=== PATIENT | male | born 1985 | race Caucasian/White ===

== ENCOUNTER 2024-12-19 11:44 | Outpatient (OUT) | payer MEDICAID, SELFPAY ==
--- OUTSIDE RECORDS SUMMARY | 2024-12-19 11:49 | XMS_ITS | Clinical Summary ---
Author Organization [facility] Address [id number] [address] [place] [address] Care Team Providers Care Resource Management Specialist Name Role Phone Gia Ann MD Primary Care Provider [phone] Allergies No known active allergies Medications omeprazole (PriLOSEC) 20 mg capsule Take 1 capsule (20 mg total) by mouth in the morning. Active QUEtiapine (SEROquel) 50 mg tablet Take 1 tablet (50 mg total) by mouth nightly. Active lithium carbonate 150 mg capsule Take 100 mg by mouth in the morning. Active busPIRone (BUSPAR) 5 mg tablet Take 1 tablet (5 mg total) by mouth. 08/25/2024 Active hydrOXYzine (VISTARIL) 25 mg capsule Take 1 capsule (25 mg total) by mouth 3 (three) times a day as needed for anxiety. 08/25/2024 Active Encounters Date Type Department Care Team Description 10/17/2024 9:30 AM EDT - 10/17/2024 10:00 AM EDT Surgery [facility] Surgery [address] [place] [phone] Jose Luis Miguel DO 5TH METARARPAL HARDWARE REMOVAL [70830 (CPT )] 10/17/2024 7:55 AM EDT - 10/17/2024 9:46 AM EDT Hospital Encounter [address] [address] Jose Luis Miguel, DO Discharge Disposition: Home 10/17/2024 Travel 10/03/2024 8:01 AM EDT - 10/03/2024 9:49 AM EDT Emergency [facility] - Emergency [address] [facility] [address] Monica Ortiz MD Post-operative pain (Primary Dx) Discharge Disposition: Home 10/03/2024 Travel 09/21/2024 Travel from Last 3 Months Family History Medical History Relation Name Comments COPD Maternal Grandmother Relation Name Status Comments Maternal Grandmother Social History Tobacco Use Types Packs/Day Years Used Date Smoking Tobacco: Every Day Cigarettes 1 24 Smokeless Tobacco: Never Tobacco Cessation:Ready to Q uit: Not Asked; Counseling Given: Not Answered Alcohol Use Standard Drinks/Week Comments Not Currently 0 (1 standard drink = 0.6 oz pur e alcohol) Hunger Screening Answer Date Recorded Within the past 12 months we worried whether our food would run out before we got money to buy more. Never True 10/03/2024 Within the past 12 months th e food we bought just didn't last and we didn't have money to get more. Never True 10/03/2024 Sex and Gender Information Value Date Recorded Sex Assigned at Not on file Legal Sex Male 2:20 PM EST Gender Identity Not on file Sexual Orientation Not on file Last Filed Vital Signs Vital Sign Reading Time Taken Comments Blood Pressure 145/100 10/17/2024 9:36 AM EDT Pulse 78 10/17/2024 9:13 AM EDT Temperature 35.8 C (96.4 F) 10/17/2024 9:36 AM EDT Respiratory Rate 18 10/17/2024 9:36 AM EDT Oxygen Saturation 100% 10/17/2024 9:13 AM EDT Inhaled Oxygen Concentration - - Weight 93 kg (205 lb) 10/17/2024 8:08 AM EDT Height 172.7 cm (5' 8 ) 10/17/2024 8:08 AM EDT Body Mass Index 31.17 10/17/2024 8:08 AM EDT Plan of Treatment Health Maintenance Due Date Last Done Comments Tobacco Counseling 1983 Depression Screening 1995 Adult BMI Follow Up Plan 2001 DTaP,Tdap and Td Vaccines (1 - Tdap) 2002 Influenza Vaccine 01/01/2025 Adult BMI Screening 10/17/2025 10/17/2024 Tobacco Screening 10/17/2025 10/17/2024 Medical Devices Explanted Type Area Women'S Basketball Coach Device Identifier Shelf Expiration Date Model / Serial / Lot 6 Radhika Implanted:Qty: 2 on 08/23/2024 by Jose Luis Miguel, DO at [facility] Explanted:Qty: 2 on 10/17/2024 by Jose Luis Miguel DO at [facility] Implant Wire Right: Hand [employer] 05/03/2029 [id number] / NA / NA Procedures Procedure Name Priority Date/Time Associated Diagnosis Comments XR HAND RT 2 VWS Routine 10/17/2024 10:2 4 AM EDT VT REMOVAL SUPERFICIAL IMPLANT 10/17/2024 9:10 AM EDT Displaced fracture of neck of 5th metacarpal bone right hand subsequent encouter for fracture with routine healing Case Notes 0830 Special Needs C-ARMpins PM ED SPLINT APPLICATION Routine 10/03/2024 9:12 AM EDT XR HAND RT MIN 3 VWS STAT 10/03/2024 8:41 AM EDT LITHIUM LEVEL Routine 09/21/2024 9:41 AM EDT Other exterminator (current) drug therapy from Last 3 Months Results * X-ray hand right 2 views (10/17/2024 10:24 AM EDT) Anatomical Region Laterality Modality Upper Extremities, MSK, Hand Right Rad io Fluoroscopy 10/17/2024 11:5 7 PM EDT Narrative 10/17/2024 11:57 PM EDT XR HAND RT 2 VWS INDICATION: Right hand pain pinning removal. FINDINGS: Intraoperative fluoroscopy provided during orthopedic procedure right hand. No radiologist present during the examination. Reference Air Kerma: 0.12 mGy IMPRESSION: Intraoperative fluoroscopy provided as above. See operative report for additional details. Finalized by Gabriel Iniguez MD on 10/17/2024 11:57 PM Procedure Note Gabriel Iniguez MD - 10/17/2024 XR HAND RT 2 VWS INDICATION: Right hand pain pinning removal. FINDINGS: Intraoperative fluoroscopy provided during orthopedic procedure righthand. No radiologist present during the examination. Reference Air Kerma: 0.12 mGy IMPRESSION: Intraoperative fluoroscopy provided as above. See operative report foradditional details. Finalized by Gabriel Iniguez MD on 10/17/2024 11:57 PM Jose Luis Miguel DO IMG DIAGNOSTIC IMAGING ORDE LAM Final Result * Splint Application (10/03/2024 9:12 AM EDT) Narrative Monica Ortiz MD - 10/03/2024 9:12 AM EDT Monica Ortiz MD 10/03/2024 9:41 AM Splint Application Date/Time: 10/03/2024 9:12 AM Performed by: Monica Ortiz MD Authorized by: Monica Ortiz MD Consent: Consent obtained: Verbal Consent given by: Patient Risks, benefits, and alternatives were discussed: yes Risks discussed: Discoloration, numbness, pain and swelling High View protocol: Procedure explained and questions answered to patient or proxy's satisfaction: yes Patient identity confirmed: Verbally with patient Pre-procedure details: Distal neurologic exam: Normal Distal perfusion: distal pulses strong and brisk capillary refill Procedure details: Location: Hand Hand location: R hand Splint type: Ulnar gutter Supplies: Fiberglass, cotton padding and elastic bandage Attestation: Splint applied and adjusted personally by me Post-procedure details: Distal neurologic exam: Normal Distal perfusion: distal pulses strong and brisk capillary refill Procedure completion: Tolerated well, no immediate complications Monica Ortiz MD PROCEDURE/MINOR SURGICAL ORDE RABJOSE DANIEL Final Result * X-ray hand right minimum 3 views (10/03/2024 8:41 AM EDT) Anatomical Region Laterality Modality Upper Extremities, MSK, Hand Com puted Radiography 10/03/2024 8:44 AM EDT Narrative 10/03/2024 8:45 AM EDT XR HAND RT MIN 3 VWS HISTORY: R hand pain from pins. COMPARISON: 08/16/2024 IMPRESSION: Interpretation fifth metacarpal neck fracture, improved alignment from preoperative imaging. Juxta-articular osteopenia about the hand, possibly related to disuse. Finalized by Luis Lora MD on 10/03/2024 8:45 AM Procedure Note Luis Lora MD - 10/03/2024 XR HAND RT MIN 3 VWS HISTORY: R hand pain from pins. COMPARISON: 08/16/2024 IMPRESSION: Interpretation fifth metacarpal neck fracture, improved alignment frompreoperative imaging. Juxta-articular osteopenia about the hand, possibly related to disuse. Finalized by Luis Lora MD on 10/03/2024 8:45 AM Monica Ortiz MD IMG DIAGNOSTIC IMAGING ORDERA BLES Final Result * (ABNORMAL) Koppel level (09/21/2024 9:41 AM EDT) LITHIUM 0.3(L) 0.5 - 1.5 mmol/L 09/21/2024 3:10 PM EDT [facility] Blood Venous blood / Unknown Venipuncture / Unknown 09/21/2024 9:41 AM EDT 09/21/2024 9:42 AM EDT Mandi Simmons OYSTER CULTURIST-MASK DESIGNER LAB BLOOD ORDERABLES Fin al Result [facility] [address] [place] [address], [place] [phone] from Last 3 Months Insurance [facility] [employer] [place] [employer] WORK[employer] COMPENSATION Care Teams Resource Management Specialist Relationship Specialty Start Date End Date Gia Ann MD PCP - General Infectious Disease 05/01/24
--- OUTSIDE RECORDS SUMMARY | 2024-12-19 11:49 | XMS_ITS | Patient Health Record ---
Author Organization [facility] vices Address [address] [place], [place] [id number] Care Team Providers Care Fiberglass Tube Molder Name Role Phone Gia Ann Primary Care Provider Allergies No Known Allergies Results Component Value Reference Range Notes LIPID PANEL WITH REFLEX TO D IRECT LDL Reviewed date:05/01/2024 07:53:07 AM Interpretation: Performing Lab: Notes/Report: CHOLESTEROL 142 100-199 mg/dL TRIGLYCERIDES 46 20-149 mg/dL VLDL-CHOL, CALCULATED 9 <30 mg/dL HDL-CHOL 71 >=40 mg/dL LDL-CHOL, CALCULATED 62 <130 mg/dL ADULT LDL CHOLESTEROL CLASSIFICATION <100mg/dL Optimal 100-129 Near/Abo ve Optimal 130-159mg/dL Borderli ne High >160mg/dL High Risk Desirable range <100 mg/dL for patients with CHD or diabetes and <70 mg/dL for diabetic patients with known heart disease. Direct LDL is recommended for patients with triglycerides >400. LDL/HDL 0.9 <5.0 LDL/HDL RATIO MALE FEMALE below average risk <2.3 <2.3 average risk <5.0 <4.1 moderate risk <7.1 <5.6 high risk >7.1 >5.6 CHOL/HDL 2.0 2.0-4.5 COMPREHENSIVE METABOLIC PANE L WITH GFR Reviewed date:05/01/2024 07:53:02 AM Interpretation: Performing Lab: Notes/Report: GLUCOSE 95 70-100 mg/dL BUN 18 6-20 mg/dL CALCIUM 9.7 8.6-10.5 mg/dL CREATININE, BLOOD 0.64 0.67-1.30 mg/dL eGFR (2020 CKD-EPI) 123 >59 mL/min/1.73m2 SODIUM 141 135-148 mmol/L POTASSIUM 4.9 3.5-5.4 mmol/L CHLORIDE 105 96-107 mmol/L CO2 25 18-32 mmol/L ANION GAP 11 7-16 mmol/L T. BILIRUBIN 0.3 <1.3 mg/dL ALK PHOS 117 39-118 U/L AST-SGOT 17 9-50 U/L ALT-SGPT 14 5-41 U/L T. PROTEIN 6.8 6.0-8.3 g/dL ALBUMIN 4.3 3.5-5.2 g/dL ACUTE HEPATITIS PANEL Reviewed date:05/01/2024 07:52:42 AM Interpretation: Performing Lab: Notes/Report: HEPATITIS A AB, IGM NEGATIVE NEGATIVE HEPATITIS B CORE AB, IGM NEGATIVE NEGATIVE HEPATITIS B SURFACE AG NEGATIVE NEGATIVE HEPATITIS C AB NEGATIVE NEGATIVE CBC W/AUTO DIFF Reviewed date:05/01/2024 07:52:09 AM Interpretation: Performing Lab: Notes/Report: WBC 5.7 3.6-11.0 THDS/CMM RBC 4.43 4.40-6.10 MILL/CMM HGB 13.5 13.0-18.0 G/DL HCT 40.6 39-52 % MCV 92 75-100 fL MCH 30.5 26.0-32.0 pg MCHC 33.3 32.0-35.0 g/dl RDW 13.2 11.2-14.8 % PLATELET 213 140-440 THOUS/CMM NEUTROPHILS 64.0 45-75 % LYMPHOCYTES 19.8 20-45 % MONOCYTES 11.4 0-13 % EOSINOPHILS 4.2 0-5 % BASOPHILS 0.4 0-2 % IMMATURE GRAN 0.2 0-2 % ABS NEUTROPHILS 3.66 1.9-8.0 K/uL ABS LYMPHOCYTES 1.13 0.9-5.2 K/uL ABS MONOCYTES 0.65 0.1-1.0 K/uL ABS EOSINOPHILS 0.24 0.0-0.80 K/uL ABS BASOPHILS 0.02 0.0-0.2 K/uL ABS IMMATURE GRAN 0.01 0.00-0.06 K/uL PSA, TOTAL, 3RD GENERATION Reviewed date:05/01/2024 07:52:57 AM Interpretation: Performing Lab: Notes/Report: PSA, TOTAL 1.570 0-4.00 ng/mL Method: Sveta Francois ECLIA PSA levels should not be interpreted as absolute evidence of disease, however it is widely accepted as an adjunctive test in the management of prostate cancer patients. Values obtained with different assay methods or kits can not be used interchangeably. A detectable PSA following radical prostatectomy is associated with eventual clinical disease recurrence in some, but not all patients. It may also be due to the presence of benign glands. The AUA defines biochemical recurrence as an initial PSA value >=0.2 ng/ml followed by a subsequent confirmatory PSA value >=0.2 ng/ml. HEMOGLOBIN A1C Reviewed date:05/01/2024 07:52:53 AM Interpretation: Performing Lab: Notes/Report: HEMOGLOBIN A1C 5.0 <5.7 % Prediabetes: 5.7% to 6.4% Diabetes: >6.4% Glycemic control for adults with diabetes: <7.0% Use with caution in patients with abnormal hemoglobin variants as the half-life of red blood cells and in vivo glycation rates are affected. AVERAGE WHOLE BLOOD GLUCOSE 97 <126 mg/dl UNLESS OTHERWISE INDICATED, ALL TESTING PERFORMED AT: [facility] [address] [place] [address] MIX TECHNICIAN: TSALIN SAVAGE M.D. CLIA NUMBER [id number] CAP ACCREDITATION AUID [id number] VITAMIN B12 Reviewed date:05/01/2024 07:52:18 AM Interpretation: Performing Lab: Notes/Report: VITAMIN B12 546 629-4260 pg/mL It has been reported that between 5 and 10% of patients with values between 200 and 400 pg/ml may experience neuropsychiatric and hematologic abnormalities due to occult B12 deficiency. Less than 1% of patients with values above 400 pg/ml will have symptoms. VITAMIN B1 PLASMA Reviewed date:05/01/2024 07:52:15 AM Interpretation: Performing Lab: Notes/Report: VITAMIN B1, PLASMA <2 4-15 nmol/L INTERPRETIVE DATA: Vitamin B1, Plasma Thiamine (vitamin B1) is reported. However, thiamine diphosphate (TDP), the biologically active form of thiamine, is not found in measurable concentrations in plasma, and is best determined in whole blood specimens. Plasma thiamine concentration reflects recent intake rather than body stores. This test was developed and its performance characteristics determined by [facility]. It has not been cleared or approved by the [place] Food and Drug Administration. This test was performed in a CLIA certified laboratory and is intended for clinical purposes. Performed By: [facility] [address] [place] [id number] Stitcher Operator: Cooper Dunlap MD, PhD CLIA Number: [id number] IRON BINDING CAPACITY (IBC) IRON AND % SATURATION Reviewed date:05/01/2024 07:52:28 AM Interpretation: Performing Lab: Notes/Report: UNSATURATED IBC 475 112-347 ug/dL IRON BINDING 509 250-450 ug/dL IRON SATURATION 7 13-45 % IRON 34 59-158 ug/dL VITAMIN D 25 HYDROXY Reviewed date:05/01/2024 07:52:37 AM Interpretation: Performing Lab: Notes/Report: VITAMIN D, 25 HYDROXY 11.5 30.0-100.0 ng/mL 25-OH VITAMIN D INTERPRETATION Deficiency.... <20.0 ng/ml Insufficiency..20.0-29.0 ng/ml Sufficiency....30.0-100.0 ng/ml Possible Toxicity...>150 ng/ml HIV-1 2 COMBO AG/AB Reviewed date:05/01/2024 07:52:46 AM Interpretation: Performing Lab: Notes/Report: Negative for HIV-1 antigen and HIV-1/HIV-2 antibodies. No laboratory evidence of HIV infection. Does not exclude the possibility of exposure to or infection with HIV-1 and/or HIV-2 that are below the limit of detection of this assay. HIV-1,2 COMBO AG/AB Nonreactive Nonreactive HIV-1 p24 Ag Nonreactive Nonreactive HIV-1/HIV-2 Abs Nonreactive Nonreactive Reason For Referral Reason needs colonoscopy an d EGD with h/of polyps and multiple ulcers in stomach Diagnosis 1 Screening for colon cancer (Z12.11) Referral Organization Main Referring Provider First Name Gia Referring Provider Last Name Seth Referring Provider Speciality Internal M edicine Referred Provider Yon James Referred Provider Specialty General Surg darshan General Notes Stephanie Singleton 05/08 08:26:11 AM >{{TOFIRSTNAME}} This is [facility] following up on an outstanding referral that was ordered by your provider. Please call our office at , so we can _update our records., Stephanie Singleton 05/15/2024 07:24:51 AM >no response from patient , closing per protocol. Referral Priority Routine Medications Medication SIG (Take, Route, Fr equency, Duration) Notes Start Date End Date Status Fluconazole 200 MG 1 tablet Orally weee kly; Duration: 10 days 04/25/2024 Active Nystatin 385420 UNIT/GM 1 application Ex ternally Twice a day; Duration: 10 days 04/25/2024 Active Omeprazole 20 MG 1 capsule 1/2 to 1 h our before morning meal Orally Once a day Active Nystatin 198138 UNIT/GM APPLY OINTMENT T OPICALLY TO AFFECTED AREA TWICE DAILY UNTIL RESOLVED. External; Duration: 15 Days Active Social History Tobacco Use: Social History Observation Description Date Details (start date - stop date) Current Smoker NA - NA Sex Assigned At : Social History Observation Description Sex Assigned At Male CAGE-AID Questionnaire (2018 Edition) Question Answer Notes Have you ever felt that you ought to cut down on your drinking or drug use? No Have people annoyed you by criticizing your drin seb or drug use? No Have you ever felt bad or guilty about your drin seb or drug use? No Have you ever had a drink or used drugs first thing in the morning to steady your nerves or to get rid of a hangover? No CAGE-AID Score 0 Interpretation Negative PRAPARE Question Answer Notes Date Completed/Updated: 04/25/2024 What is your current housing situation? I have h ousing Are you worried about losing your housing? No What is the highest level of school that you have finished? 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 Check all that apply I do not have problems meeting my needs Has lack of transportation k ept you from medical appointments, meetings, work or from getting things needed for daily living? No How often do you see or talk to people that you care about and feel close to? (For example: talking to friends on the phone, visiting friends or family, going to hindu or club meetings) More than 5 times a week How stressed are you? Stress is when someone feels tense, nervous, anxious, or can't sleep at night because their mind is troubled Very much In the past year have you sp ent more than 2 nights in a row in a fci, nursing home, long term center, or juvenile correctional facility? No Are you a refugee? No What country are you from? [place] Do you feel physically and e motionally safe where you currently live? Yes In the past year, have you b een afraid of your partner or ex-partner? No PRAPARE Score: 2 Tobacco Control (Standard) Question Answer Notes Tobacco use: Current every day smoker Additional Findings: Tobacco user Very heavy cig arette smoker (40+ cigs/day) Problems Problem Type SNOMED Code ICD Code Onset Dates Problem Status W/U Status Risk Notes Problem Obesity (508412902) Obesity (BMI 30-39.9) (E66.9) Active confirmed Vital Signs Heart Rate 74 /min 04/25/2024 Stephanie Singleton 04/25/2024 09:28:00 AM EST > Temperature 98.0 degrees Fahrenheit 04/25/2024 Stephanie Duarte 04/25/2024 09:28:00 AM EST > Respiratory Rate 18 /min 04/25/2024 Shawn Singleton 04/25/2024 09:28:00 AM EST > Height-cm 172.72 cm 04/25/2024 Stephanie Singleton 04/25/2024 09:28:00 AM EST > Oximetry 97 % 04/25/2024 Stephanie Singleton 04/25/2024 09:28:00 AM EST > Blood pressure diastolic 77 mm Hg 04/25/2024 Stephanie Payne 04/25/2024 09:28:00 AM EST > Weight-kg 95.93 kg 04/25/2024 Stephanie Singleton 04/25/2024 09:28:00 AM EST > Height 68 in 04/25/2024 Stephanie Singleton 04/25/2024 09:28:00 AM EST > Blood pressure systolic 136 mm Hg 04/25/2024 Stephanie Duarte 04/25/2024 09:28:00 AM EST > Weight 211.5 lbs 04/25/2024 ManiGold velázquezey 04/25/2024 09:28:00 AM EST > BMI 32.15 kg/m2 04/25/2024 Mani Stephanie 04/25/2024 09:28:00 AM EST > Encounters Encounter Location Date Provider Diagnosis [facility] [address] [place] [address] 04/25/2024 Gia Ann Encounter for wellne ss examination Z00.00 ; Screening for diabetes mellitus Z13.1 ; Encounter for screening for HIV Z11.4 ; Screening for colon cancer Z12.11 ; Screening for prostate cancer Z12.5 ; Encounter for screening for cardiovascular disorders Z13.6 ; Dietary counseling Z71.3 ; Exercise counseling Z71.82 ; H/O alcoholic gastritis Z87.19 ; History of gastric bypass Z98.84 ; Bone pain M89.8X9 ; Skin candidiasis B37.2 and Obesity (BMI 30-39.9) E66.9 Assessments Encounter Date Diagnosis (ICD Code) Assessment Notes Treatment Notes Treatment Clinical Notes Section Notes 04/25/2024 Screening for diabetes mellitus (ICD-10 - Z13.1) 04/25/2024 Encounter for wellness examination (ICD-10 - Z00.00) Pt is here for wellness today. Overall health is okay. I advised to get baseline tests and pt is agreeable for that. I advised regular exercise and eating a balanced diet with focus on eating less fried and fatty foods and eating more fresh fruits and vegetable in an attempt to achieve and maintain a healthy BMI and PVU We discussed the importance of vaccination including covid shots and yearly flu shots and all questions were answered in detail today. Pt will see us back in 2 week to discuss results. 04/25/2024 Encounter for screening for HIV (ICD-10 - Z11.4) 04/25/2024 Screening for colon cancer (ICD-10 - Z12.11) 04/25/2024 Screening for prostate cancer (ICD-10 - Z12.5) 04/25/2024 Encounter for screening for cardiovascular disorders (ICD-10 - Z13.6) 04/25/2024 Dietary counseling (ICD-10 - Z71.3) 04/25/2024 Exercise counseling (ICD-10 - Z71.82) 04/25/2024 H/O alcoholic gastritis (ICD-10 - Z87.19) 04/25/2024 History of gastric bypass (ICD-10 - Z98.84) 04/25/2024 Bone pain (ICD-10 - M89.8X9) 04/25/2024 Skin candidiasis (ICD-10 - B37.2) 04/25/2024 Obesity (BMI 30-39.9) (ICD-10 - E66.9) Plan Of Treatment No Information Insurance Providers Payer Name Payer Address Payer Phone Subscriber Number Group Number Insured Name Patient Relationship to Insured Coverage Start Date Coverage End Date [facility] [address] [place], [place] [phone] [id number] Self - patient is the insured 4 Medical (General) History Medical History History ICD Code h/o HTN - resolved after gastric bypass Surgical History Surgery Date(Month/Year) tonsils gastric bypass Hospitalization History Reason Date(Month/Year) bleeding ulcers 2012,2014,2015,2011
[2024-12-19 13:50] LABS: Blood Urea Nitrogen 13.0 mg/dL (7.0-18.0); Estimated GFR (African America >60 (>=60 mL/min/1.73m^2); Estimated GFR (Non-African Ame >60 (>=60 mL/min/1.73m^2)
[2024-12-20 04:07] LABS: Lithium (Eskalith(R)), Serum 0.8 mmol/L (0.5-1.2)
== END 2024-12-19 11:45 | disposition home or self-care (01) ==
LOC: LAB 11:48
PROVIDERS: Visit Provider Registered Nurse Psychiatric/Mental Health
DX: Z79.899 Other long term (current) drug therapy (principal)
CPT/HCPCS: 36415; 80178; 82565; 84520

== ENCOUNTER 2025-02-26 21:43 | Emergency (ER) | payer MEDICAID, SELFPAY ==
--- OUTSIDE RECORDS SUMMARY | 2024-05-08 09:30 | XMS_ITS ---
Author Organization [facility] vices Address [address] [place] [phone] Care Team Providers Care Plate And Weld Inspector Name Role Phone Gia Ann Primary Care Provider REASON FOR VISIT 2 wk fu discuss labs Social History Sex Assigned At : Social History Observation Description Sex Assigned At Male Encounters Encounter Location Date Provider Diagnosis [address] [address] 05/08/2024 Gia Ann Plan Of Treatment No Information Progress Notes * DISHAIvandarshanDOB:1985 (39 yo M)Acc No.[id number]:05/08/2024 Medical Note Patient: Te CONCEPCION :?Gia Ann MDDOB:1985???Age:38 Y???Sex: MaleDate:05/08/2024Phone:[phone]:[address] [place] [id number] Subjective: * Chief Complaints: * 1 . 2 wk fu discuss labs. * Medical History: Objective: * Vitals: Assessment: Plan: * Treatment: * Billing Information: * Visit Code: * Procedure Codes: * Electronic signature of Gia Ann MD on 02/26/2025 at 09:51 PM EDTSign off status: Pending * Provider: Yovani Ann MD Date: 0 05/08/2024 Generated for Printing/Faxing/eTransmitting on:?02/26/2025 09:51 PM EDT
[2025-02-26 21:48] VITALS: BP 127/88; PULSE 90; TEMP 36.3; O2SAT 99; BMI 32.5
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
--- NOTE | 2025-02-26 21:49 | ECG_ITS ---
The [facility] Test Date: 2025-02-26 Pat Name: YON GAUTHIER Department: Room: - Gender: Male Tailing Hand: : 1985 Requested By: [id number] Order Number: [id number] Reading MD: SAQIB MYERS M.D. Measurements Intervals [place] Rate: 72 P: 71 UT: 170 QRS: 43 QRSD: 90 T: 46 QT: 396 QTc: 421 Interpretive Statements 1100 Sinus rhythm 9110 normal ECG No previous ECG available for comparison Electronically Signed On 02-27-2025 8:43:43 EDT by SAQIB MYERS M.D.
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
[2025-02-26 21:52] VITALS: BP 127/88
--- OUTSIDE RECORDS SUMMARY | 2025-02-26 21:52 | XMS_ITS | Clinical Summary ---
Author Organization [employer] tem Address [id number] [address] [place] [address] Care Team Providers Care Postdoctoral Fellow Name Role Phone Gia Ann MD Primary Care Provider [phone] Allergies No known active allergies Medications MedicationSigDispense QuantityRefillsLast FilledStart DateEnd DateStatus omeprazole (PriLOSEC) 20 mg capsule Take 1 capsule (20 mg total) by mouth in the morning.Active QUEtiapine (SEROquel) 50 mg tablet Take 1 tablet (50 mg total) by mouth nightly.Active lithium carbonate 150 mg capsule Take 100 mg by mouth in the morning.Active busPIRone (BUSPAR) 5 mg tablet Take 1 tablet (5 mg total) by mouth.5Active hydrOXYzine (VISTARIL) 25 mg capsule Take 1 capsule (25 mg total) by mouth 3 (three) times a day as needed for anxiety.5Active Family History Medical HistoryRelationNameCommentsCOPDMaternal GrandmotherRelationNameStatus CommentsMaternal Grandmother Social History Tobacco UseTypesPacks/DayYears UsedDateSmoking Tobacco: Every ImvHvkhopnbjn309 Smokeless Tobacco: Never Tobacco Cessation:Ready to Q uit: Not Asked; Counseling Given: Not Answered Alcohol UseStandard Drinks/WeekCommentsNot Currently0 (1 standard drink = 0.6 oz pure alcohol)Hunger ScreeningAnswerDate RecordedWithin the past 12 months we worried whether our food would run out before we got money to buy more.Never True10/03/2024Within the past 12 months the food we bought just didn't last and we didn't have money to get more.Never True10/03/2024Sex and Gender Information ValueDate RecordedSex Assigned at BirthNot on fileLegal TgdKzup37/11/2024 2:20 PM ESTGender IdentityNot on fileSexual OrientationNot on file Last Filed Vital Signs Vital SignReadingTime TakenCommentsBlood Nyvvkeid731/7399010/17/2024 9:36 AM EDT Fronf589510/17/2024 9:13 AM TSJUmmkjltsejh34.8 ??C (96.4 ??F)10/17/2024 9:36 AM EDTRespiratory Inao194410/17/2024 9:36 AM EDTOxygen Uhenztkxmq184%10/17/2024 9:13 AM EDTInhaled Oxygen Concentration--Khlwtr64 kg (205 lb)10/17/2024 8:08 AM EDT Bvywyl201.7 cm (5' 8 )10/17/2024 8:08 AM EDTBody Mass Index31.17010/17/2024 8:08 AM EDT Plan of Treatment Health MaintenanceDue DateLast DoneCommentsTobacco Gokeuzoibk03/12/1984 Depression Atcuyjnup34/12/1996Adult BMI Follow Up Plan2001DTaP,Tdap and Td Vaccines (1 - Tdap)2002Influenza Nzuzrri1201/01/2025dult BMI Screening Tobacco Zfsrrlwjf30 Medical Devices ExplantedTypeAreaManufacturerDevice IdentifierShelf Expiration DateModel / Serial / Lot6 [employer] Implanted:Qty: 2 on 08/23/2024 by Jose Luis Miguel DO at [facility] Explanted:Qty: 2 on 10/17/2024 by Jose Luis Miguel DO at [facility] WireRight: HandKey Bhkkgobi22/01/[id number] / NA / NA Insurance Care Teams Team MemberRelationshipSpecialtyStart DateEnd Gia Ann MD PCP - GeneralInfectious Zxliqxv70/30/24
--- OUTSIDE RECORDS SUMMARY | 2025-02-26 21:52 | XMS_ITS | Patient Health Record ---
Author Organization [facility]ices Address [address] [place], [place] [id number] Care Team Providers Care Physician'S Aide Name Role Phone Gia Ann Primary Care Provider Allergies No Known Allergies Results Component Value Reference Range Notes HIV-1 2 COMBO AG/AB Reviewed date:05/01/2024 07:52:46 AM Interpretation: Performing Lab: Notes/Report: Negative for HIV-1 antigen and HIV-1/HIV-2 antibodies. No laboratory evidence of HIV infection. Does not exclude the possibility of exposure to or infection with HIV-1 and/or HIV-2 that are below the limit of detection of this assay. HIV-1,2 COMBO AG/AB Nonreactive Nonreactive HIV-1 p24 AgNonreactiveNonreactiveHIV-1/HIV-2 AbsNonreactiveNonreactiveVITAMIN D 25 HYDROXY Reviewed date:05/01/2024 07:52:37 AM Interpretation: Performing Lab: Notes/Report: VITAMIN D, 25 HYDROXY 11.530.0-100.0 ng/mL 25-OH VITAMIN D INTERPRETATION Deficiency.... <20.0 ng/ml Insufficiency..20.0-29.0 ng/ml Sufficiency....30.0-100.0 ng/ml Possible Toxicity...>150 ng/ml IRON BINDING CAPACITY (IBC) IRON AND % SATURATION Reviewed date:05/01/2024 07:52:28 AM Interpretation: Performing Lab: Notes/Report:UNSATURATED DVJ295833-179 ug/dLIRON MZLUNSU553764-934 ug/dLIRON VDFMKSWALV154-68 %WXYB9810-606 ug/dLVITAMIN B1 PLASMA Reviewed date:05/01/2024 07:52:15 AM Interpretation: Performing Lab: Notes/Report: VITAMIN B1, PLASMA <24-15 nmol/L INTERPRETIVE DATA: Vitamin B1, Plasma Thiamine (vitamin B1) is reported. However, thiamine diphosphate (TDP), the biologically active form of thiamine, is not found in measurable concentrations in plasma, and is best determined in whole blood specimens. Plasma thiamine concentration reflects recent intake rather than body stores. This test was developed and its performance characteristics determined by [facility]. It has not been cleared or approved by the [place] Food and Drug Administration. This test was performed in a CLIA certified laboratory and is intended for clinical purposes. Performed By: [facility] [address] [place] [id number] Salon Manager: Cooper Dunlap MD, PhD CLIA Number: [id number] VITAMIN B12 Reviewed date:05/01/2024 07:52:18 AM Interpretation: Performing Lab: Notes/Report:VITAMIN [id number] pg/mL It has been reported that between 5 and 10% of patients with values between 200 and 400 pg/ml may experience neuropsychiatric and hematologic abnormalities due to occult B12 deficiency. Less than 1% of patients with values above 400 pg/ml will have symptoms. HEMOGLOBIN A1C Reviewed date:05/01/2024 07:52:53 AM Interpretation: Performing Lab: Notes/Report:HEMOGLOBIN A1C5.0<5.7 % Prediabetes: 5.7% to 6.4% Diabetes: >6.4% Glycemic control for adults with diabetes: <7.0% Use with caution in patients with abnormal hemoglobin variants as the half-life of red blood cells and in vivo glycation rates are affected. AVERAGE WHOLE BLOOD GLXPLPW27<126 mg/dl UNLESS OTHERWISE INDICATED, ALL TESTING PERFORMED AT: [facility] [address] [place] [id number] BADGER DISTILLER OPERATOR: STALIN SAVAGE M.D. CLIA NUMBER [id number] CAP ACCREDITATION AUID [id number] PSA, TOTAL, 3RD GENERATION Reviewed date:05/01/2024 07:52:57 AM Interpretation: Performing Lab: Notes/Report: PSA, TOTAL 1.5700-4.00 ng/mL Method: Sveta Francois ECLIA PSA levels [...] a subsequent confirmatory PSA value >=0.2 ng/ml. CBC W/AUTO DIFF Reviewed date:05/01/2024 07:52:09 AM Interpretation: Performing Lab: Notes/Report:WBC5.73.6-11.0 THDS/CMMRBC4.434.40-6.10 MILL/HCXYMF27.513.0-18.0 G/DLHCT40.639-52 %ASW6018-204 fLMCH30.526.0-32.0 asJFYW07.332.0-35.0 g/dlRDW13.2 11.2-14.8 %PKYZZMZL218856-382 THOUS/QCVXQTTHZCWQIC90.045-75 %HRRAKPJKMMF80.820- 45 %YTAIXFLZX35.40-13 %EOSINOPHILS4.20-5 %BASOPHILS0.40-2 %IMMATURE GRAN0.20-2 % ABS NEUTROPHILS3.661.9-8.0 K/uLABS LYMPHOCYTES1.130.9-5.2 K/uLABS MONOCYTES0.65 0.1-1.0 K/uLABS EOSINOPHILS0.240.0-0.80 K/uLABS BASOPHILS0.020.0-0.2 K/uLABS IMMATURE GRAN0.010.00-0.06 K/uLACUTE HEPATITIS PANEL Reviewed date:05/01/2024 07:52:42 AM Interpretation: Performing Lab: Notes/Report: HEPATITIS A AB, IGM NEGATIVENEGATIVE HEPATITIS B CORE AB, IGM NEGATIVENEGATIVEHEPATITIS B SURFACE AGNEGATIVENEGATIVEHEPATITIS C ABNEGATIVE NEGATIVECOMPREHENSIVE METABOLIC PANEL WITH GFR Reviewed date:05/01/2024 07:53:02 AM Interpretation: Performing Lab: Notes/Report:IVFELLZ8434-110 mg/tMEBQ727-42 mg/dLCALCIUM9.78.6-10.5 mg/dL CREATININE, BLOOD 0.640.67-1.30 mg/dLeGFR (2020 CKD-EPI)123>59 mL/min/1.73m2 TETFGA997674-059 mmol/LPOTASSIUM4.93.5-5.4 mmol/EPMRFHTLG99048-002 mmol/VMQ166 18-32 mmol/LANION SXX156-76 mmol/LT. BILIRUBIN0.3<1.3 mg/dLALK RXOJ63208-003 U/L GZH-SCQO902-62 U/FYPN-BWID891-14 U/LT. PROTEIN6.86.0-8.3 g/dLALBUMIN4.33.5-5.2 g/dLLIPID PANEL WITH REFLEX TO DIRECT LDL Reviewed date:05/01/2024 07:53:07 AM Interpretation: Performing Lab: Notes/Report:MMPCBYKIHUO503598-315 mg/tSKNKVKVWFNAZLS8302-213 mg/dL VLDL-CHOL, CALCULATED 9<30 mg/dLHDL-CHOL71>=40 mg/dL LDL-CHOL, CALCULATED 62<130 mg/dL ADULT LDL CHOLESTEROL CLASSIFICATION <100mg/dL Optimal 100-129 Near/Above Optimal 130-159mg/dL Borderline High >160mg/dL High Risk Desirable range <100 mg/dL for patients with CHD or diabetes and <70 mg/dL for diabetic patients with known heart disease. Direct LDL is recommended for patients with triglycerides >400. LDL/HDL0.9<5.0 LDL/HDL RATIO MALE FEMALE below average risk <2.3 <2.3 average risk <5.0 <4.1 moderate risk <7.1 <5.6 high risk >7.1 >5.6 CHOL/HDL2.02.0-4.5 Reason For Referral Reason needs colonoscopy an [...] Priority Routine Medications Medication SIG (Take, Route, Frequency, Duration) Notes Start Date End Date Status Fluconazole 200 MG 1 tablet Orally weeekly; Dura tion: 10 days 04/25/2024ctiveNystatin 222474 UNIT/GM1 application Externally Twice a day; Duration: 10 days04/25/2024ctiveOmeprazole 20 MG1 capsule 1/2 to 1 hour before morning meal Orally Once a dayActiveNystatin 648685 UNIT/GMAPPLY OINTMENT TOPICALLY TO AFFECTED AREA TWICE DAILY UNTIL RESOLVED. External; Duration: 15 DaysActive Social History Tobacco Use: Social History Observation Description Date Details (start date - stop date) Current Smoker NA - NA Sex Assigned At : Social History Observation Description Sex Assigned At Male CAGE-AID Questionnaire (2018 Edition) Question Answer Notes Have you ever felt that you ought to cut down on your drinking or drug use? 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 Check all that applyI do not have problems meeting my needsHas lack of transportation kept you from medical appointments, meetings, work or from getting things needed for daily living?No How often do you see or talk to people that you care about and feel close to? (For example: talkingto friends on the phone, visiting friends or family, going to yazdanism or club meetings)More than 5 times a weekHow stressed are you? Stress is when someone feels tense, nervous, anxious, or can't sleep at nightbecause their mind is troubledVery muchIn the past year have you spent more than 2 nights in a row in a care home, detention, longterm center, orjuvenile correctional facility?NoAre you a refugee?NoWhat country are you from?[place] you feel physically and emotionally safe where you currently live?YesIn the past year, have you been afraid of your partner or ex-partner?NoPRAPARE Score:2 Tobacco Control (Standard) Question Answer Notes Tobacco use: Current every day smoker Additional Findings: Tobacco userVery heavy cigarette smoker (40+ cigs/day) Problems Problem Type SNOMED Code ICD Code Onset Dates Problem Status W/U Status Risk Notes Problem Obesity (976013651) Obesity (BMI 30-39.9) (E66.9) Activeconfirmed Vital Signs Heart Rate 74 /min 04/25/2024 [...] AM EST > Weight 211.5 lbs 04/25/2024 Stephanie Singleton 04/25/2024 09:28:00 AM EST > BMI 32.15 kg/m2 04/25/2024 Stephanie Singleton 04/25/2024 09:28:00 AM EST > Encounters Encounter Location Date Provider Diagnosis [facility] [address] [place] [address] 04/25/2024 Gia Ann Encounter for wellne ss [...] Screening for diabetes mellitus (ICD-10 - Z13.1) 04/25/2024Encounter for wellness examination (ICD-10 - Z00.00) Pt [...] back in 2 week to discuss results. 04/25/2024Encounter for screening for HIV (ICD-10 - Z11.4)04/25/2024Screening for colon cancer (ICD-10 - Z12.11)04/25/2024Screening for prostate cancer (ICD- 10 - Z12.5)04/25/2024Encounter for screening for cardiovascular disorders (ICD- 10 - Z13.6)04/25/2024ietary counseling (ICD-10 - Z71.3)04/25/2024Exercise counseling (ICD-10 - Z71.82)04/25/2024H/O alcoholic gastritis (ICD-10 - Z87.19) 04/25/2024History of gastric bypass (ICD-10 - Z98.84)04/25/2024one pain (ICD-10 - M89.8X9)04/25/2024Skin candidiasis (ICD-10 - B37.2)04/25/2024Obesity (BMI 30- 39.9) (ICD-10 - E66.9) Plan Of Treatment No Information Insurance Providers Payer Name Payer Address Payer Phone Subscriber Number Group Number Insured Name Patient Relationship to Insured Coverage Start Date Coverage End Date [employer] bs [address] [place], [place] [id number] Self - patient is the insured 4 Medical (General) History Medical History History ICD Code h/o HTN - resolved after gastric bypass Surgical History Surgery Date(Month/Year) tonsils gastric bypassHospitalization History Reason Date(Month/Year) bleeding ulcers 2012,2014,2015,2011
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
[2025-02-26 22:11] LABS: Hematocrit 43.7 % (42.0-54.0); Hemoglobin 14.3 g/dL (14.0-18.0); Immature Granulocytes Abs Auto 0.02 10^3/uL (0.00-0.03); Immature Granulocytes Pct Auto 0.3 % (0.0-0.5); Lymphocytes Absolute Auto 2.8 10^3/uL (1.2-3.8); Mean Corpuscular HGB Conc 32.7 g/dL (29.9-35.2); Mean Corpuscular Hemoglobin 30.8 pg (25.9-34.0); Mean Corpuscular Volume 94.2 fL (80.0-94.0); Platelet Count 127 10^3/uL (150-450); Red Blood Count 4.64 10^6/uL (4.70-6.10); White Blood Count 6.6 10^3/uL (4.0-11.0)
[2025-02-26 22:23] LABS: INR 0.99; Partial Thromboplastin Time 26.5 sec (22.3-36.2); Prothrombin Time 10.5 sec (9.0-11.6)
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
--- NOTE | 2025-02-26 23:15 | PC.NURSE ---
Big Data Platform Architect informed per other RN that pt needs another green top draw as the first one clotted. This was sent to the lab at this time.
[2025-02-26 23:33] LABS: Acetaminophen <2.0 ug/mL (10.0-30.0); Alanine Aminotransferase 25 U/L (16-63); Albumin Globulin Ratio 1.3; Albumin Level 3.1 g/dL (3.4-5.0); Alkaline Phosphatase 93 U/L (46-116); Anion Gap 9.3; Aspartate Amino Transferase 14 U/L (15-37); Blood Urea Nitrogen 9.0 mg/dL (7.0-18.0); Calcium 7.6 mg/dL (8.5-10.1); Carbon Dioxide 23.9 mmol/L (21.0-32.0); Chloride 92 mmol/L (98-107); Estimated GFR (African America >60 (>=60 mL/min/1.73m^2); Estimated GFR (Non-African Ame >60 (>=60 mL/min/1.73m^2); Globulin 2.4 g/dL; Glucose 96 mg/dL (74-106); Potassium 3.2 mmol/L (3.5-5.1); Salicylate 2.9 mg/dL (<=19.9); Total Protein 5.5 g/dL (6.4-8.2)
[2025-02-26 23:35] LABS: Sodium 122 mmol/L (136-145)
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
[2025-02-27 00:05] LABS: Alanine Aminotransferase 31 U/L (16-63); Albumin Globulin Ratio 1.3; Albumin Level 3.5 g/dL (3.4-5.0); Alkaline Phosphatase 103 U/L (46-116); Anion Gap 9.3; Aspartate Amino Transferase 18 U/L (15-37); Blood Urea Nitrogen 9.0 mg/dL (7.0-18.0); Calcium 8.7 mg/dL (8.5-10.1); Carbon Dioxide 27.5 mmol/L (21.0-32.0); Chloride 102 mmol/L (98-107); Estimated GFR (African America >60 (>=60 mL/min/1.73m^2); Estimated GFR (Non-African Ame >60 (>=60 mL/min/1.73m^2); Globulin 2.7 g/dL; Glucose 100 mg/dL (74-106); Potassium 3.8 mmol/L (3.5-5.1); Sodium 135 mmol/L (136-145); Total Protein 6.2 g/dL (6.4-8.2)
--- NOTE | 2025-02-27 00:54 | PC.NURSE ---
Roughing Mill Operator spoke with Dorie BENTLEY. Dorie states that he will be admitted after the ETOH level comes down, and after results for urine testing are reported.
[2025-02-27 06:19] LABS: Glucose Urine UA NEGATIVE (NEGATIVE)
[2025-02-27 06:26] LABS: Cast Seen? NONE SEEN #/LPF (NONE SEEN); Crystals Seen? None Seen #/HPF (None Seen); Urine Culture Indicated NO
[2025-02-27 06:29] LABS: Cannabinoid Screen Urine NEGATIVE (NEGATIVE); Methamphetamines Screen Urine NEGATIVE (NEGATIVE); Tricyclic Antidepressant Urine NEGATIVE (NEGATIVE)
== END 2025-02-27 08:58 ==
PROVIDERS: Emergency Provider Student in an Organized Health Care Education/Training Program
DX: R45.851 Suicidal ideations (principal); F10.90 Alcohol use, unspecified, uncomplicated; Y90.6 Blood alcohol level of 120-199 mg/100 ml; F31.9 Bipolar disorder, unspecified; Z79.899 Other long term (current) drug therapy
CPT/HCPCS: 36415; 70450; 71260; 72125; 74177; 76376; 80053; 80179; 80307; 80320; 80329; 81001; 84484; 85025; 85027; 85610; 85730; 93005; 99285; Q9967

== ENCOUNTER 2025-04-11 07:40 | Outpatient (OUT) | payer MEDICAID, SELFPAY ==
--- OUTSIDE RECORDS SUMMARY | 2025-04-11 07:45 | XMS_ITS | Clinical Summary ---
Author Organization [employer] Address [id number] [address] [place] [address] Care Team Providers Care Hand Blocker Name Role Phone Gia Ann MD Primary Care Provider [phone] Allergies No known active allergies Medications MedicationSigDispense [...] Social History Tobacco UseTypesPacks/DayYears UsedDateSmoking Tobacco: Every EflRlceodvnvu354 Smokeless Tobacco: Never Tobacco Cessation:Ready to Q [...] ValueDate RecordedSex Assigned at BirthNot on fileLegal TzpOhkk97/11/2024 2:20 PM ESTGender IdentityNot on fileSexual OrientationNot on file Last Filed Vital Signs Vital SignReadingTime TakenCommentsBlood Gohoonkp795/7411010/17/2024 9:36 AM EDT Dknbp540910/17/2024 9:13 AM VNRMfbpcpkdrml45.8 ??C (96.4 ??F)10/17/2024 9:36 AM EDTRespiratory Acnq413810/17/2024 9:36 AM EDTOxygen Dkpxskcuxj499%10/17/2024 9:13 AM EDTInhaled Oxygen Concentration--Hfpzha83 kg (205 lb)10/17/2024 8:08 AM EDT Idicrh199.7 cm (5' 8 )10/17/2024 8:08 AM EDTBody Mass Index31.17010/17/2024 8:08 AM EDT Plan of Treatment Health MaintenanceDue DateLast DoneCommentsTobacco Qitgndoxfr21/12/1984 Depression Gwmftwwfg03/12/1996Adult BMI Follow Up Plan2001DTaP,Tdap and Td Vaccines (1 - Tdap)2002Influenza Wgznuhy1701/01/2025dult BMI Screening Tobacco Pukuxdlej93 Medical Devices ExplantedTypeAreaManufacturerDevice IdentifierShelf Expiration DateModel / Serial / Lot6 [employer] Implanted:Qty: 2 on 08/23/2024 by Jose Luis Miguel DO at [facility] Explanted:Qty: 2 on 10/17/2024 by Jose Luis Miguel DO at [facility] WireRight: HandKey [id number] / NA / NA Insurance Care Teams Team MemberRelationshipSpecialtyStart DateEnd Gia Ann MD PCP - GeneralInfectious Mcpjlzb60/30/24
--- NOTE | 2025-04-11 08:00 | XR_ITS ---
The [address] [address] Patient Name: YON GAUTHIER MRN: [id number] date: 1985 Sex: M Assigned Patient Location: LAB Current Patient Location: LAB Accession/Order Number: [id number] Exam Date: 04/11/2025 08:08 Report Date: 04/11/2025 10:40 At the request of: MARIA TERESA ARRINGTON Procedure: XR tibia fibula KELLY 2V BILATERAL TIB-FIB - 2 views each COMPARISON: None CLINICAL DATA: Chronic bilateral clark pain when standing. No reported injury. AP and lateral views were obtained on both sides. At the proximal right fibular shaft, there is slight expansion and periosteal reaction. The marrow at that site is also slightly heterogeneous. No acute fractures or dislocation are identified. No prominent degenerative change is seen at the knees or ankles. No focal soft tissue abnormalities are noted. XR/XR tibia fibula KELLY 2V IMPRESSION: INDETERMINATE BONY CHANGES AT THE PROXIMAL RIGHT FIBULAR SHAFT. CLINICAL CORRELATION IS SUGGESTED TO ANY SYMPTOMS OR HISTORY OF INJURY AT THAT SITE. THERE ARE IS CONTINUED CONCERN, FOLLOW-UP BONE SCAN COULD BE CONSIDERED TO DETERMINE IF THIS IS AN ACTIVE PROCESS. NO OTHER ACUTE BONY FINDINGS. Impression dictated by: Brandi Díaz M.D. 04/11/2025 10:40 AM Dictation Location: [facility] Electronically authenticated by: [id number] Y Date: 04/11/2025 10:40
[2025-04-11 09:13] LABS: Hematocrit 43.2 % (42.0-54.0); Hemoglobin 14.3 g/dL (14.0-18.0); Immature Granulocytes Abs Auto 0.01 10^3/uL (0.00-0.03); Immature Granulocytes Pct Auto 0.2 % (0.0-0.5); Lymphocytes Absolute Auto 1.5 10^3/uL (1.2-3.8); Mean Corpuscular HGB Conc 33.1 g/dL (29.9-35.2); Mean Corpuscular Hemoglobin 30.7 pg (25.9-34.0); Mean Corpuscular Volume 92.7 fL (80.0-94.0); Platelet Count 188 10^3/uL (150-450); Red Blood Count 4.66 10^6/uL (4.70-6.10); White Blood Count 5.6 10^3/uL (4.0-11.0)
[2025-04-11 09:23] LABS: Magnesium 2.3 mg/dL (1.8-2.4)
[2025-04-11 09:25] LABS: Alanine Aminotransferase 18 U/L (16-63); Albumin Globulin Ratio 1.2; Albumin Level 3.7 g/dL (3.4-5.0); Alkaline Phosphatase 126 U/L (46-116); Anion Gap 5.7; Aspartate Amino Transferase 15 U/L (15-37); Blood Urea Nitrogen 15.0 mg/dL (7.0-18.0); Calcium 9.2 mg/dL (8.5-10.1); Carbon Dioxide 29.0 mmol/L (21.0-32.0); Chloride 104 mmol/L (98-107); Estimated GFR (African America >60 (>=60 mL/min/1.73m^2); Estimated GFR (Non-African Ame >60 (>=60 mL/min/1.73m^2); Globulin 3.1 g/dL; Glucose 88 mg/dL (74-106); Potassium 3.7 mmol/L (3.5-5.1); Sodium 135 mmol/L (136-145); Total Protein 6.8 g/dL (6.4-8.2)
[2025-04-11 10:12] LABS: Ferritin 21.0 ng/mL (26.0-388.0)
[2025-04-11 10:34] LABS: Iron 86.0 ug/dL (65.0-175.0); Percent Iron Saturation 20.4 %; Total Iron Binding Capacity 421.0 ug/dL (250.0-450.0)
[2025-04-12 05:08] LABS: Vitamin B12 365 pg/mL (232-1245)
== END 2025-04-11 07:41 | disposition home or self-care (01) ==
LOC: LAB 07:42
PROVIDERS: PCP Nurse Practitioner Family; Visit Provider Nurse Practitioner Family
DX: F31.30 Bipolar disorder, current episode depressed, mild or moderate severity, unspecified (principal); M79.604 Pain in right leg; M79.605 Pain in left leg; Z98.84 Bariatric surgery status
CPT/HCPCS: 36415; 73590; 80053; 82607; 82728; 83540; 83550; 83735; 85025